=== PATIENT | male | born 1960 | race Caucasian/White ===

== ENCOUNTER 2017-04-05 11:16 | Outpatient (CLI) | payer BC ==
[~2017-04-05 11:16] MED LIST: ACET-2319 PO; ASPI-974 PO; CHOL10002 PO; LISI-600 PO
[2017-04-05 11:17] VITALS: BP 133/92
[2017-04-10] MEDS ORDERED: FEXO180T94 PO (15:05)
== END 2017-04-05 12:10 | disposition home or self-care (01) ==
LOC: ORTHO 11:16
PROVIDERS: ATTEND Nurse Practitioner Family
DX: S82.891D Other fracture of right lower leg, subsequent encounter for closed fracture with routine healing (principal); I10 Essential (primary) hypertension; Z79.82 Long term (current) use of aspirin; Z79.899 Other long term (current) drug therapy; X58.XXXD Exposure to other specified factors, subsequent encounter
CPT/HCPCS: 73600

== ENCOUNTER 2017-04-11 12:19 | Day surgery (SDC) | payer BC ==
[2017-04-10 15:05] LABS: BASOPHILS % (AUTO) 0.3 % (0-1); EOSINOPHILS # (AUTO) 0.2 X10'3 (0-0.9); LYMPHOCYTES # (AUTO) 1.6 X10'3 (1.1-4.8); LYMPHOCYTES % (AUTO) 20.5 % (21-51); MEAN CORPUSCULAR HEMOGLOBIN 29.2 PG (27.0-31.0); MEAN CORPUSCULAR HGB CONC 34.8 % (33.0-36.5); MEAN CORPUSCULAR VOLUME 83.8 FL (78-98); MEAN PLATELET VOLUME 6.2 FL (7.4-10.4); MONOCYTES # (AUTO) 0.5 X10'3 (0-0.9); MONOCYTES % (AUTO) 6.8 % (2-12); NEUTROPHILS # (AUTO) 5.5 X10'3 (1.8-7.7); NEUTROPHILS % (AUTO) 69.4 % (42-75); PRE OP HEMATOCRIT 47.1 % (42.0-52.0); PRE OP HEMOGLOBIN 16.4 g/dL (14.0-17.9); PRE OP PLATELET COUNT 288 X10'3 (140-440); RED BLOOD COUNT 5.63 X10'6 (4.70-6.10); RED CELL DISTRIBUTION WIDTH 13.6 % (11.5-14.5)
[2017-04-10 15:22] LABS: ALBUMIN 4.1 G/DL (3.4-5.0); ALBUMIN/GLOBULIN RATIO 1.1 (1.1-1.5); ALKALINE PHOSPHATASE 81 IU/L (46-116); BLOOD UREA NITROGEN 20 MG/DL (7-18); CALCIUM 9.7 MG/DL (8.5-10.1); CHLORIDE 103 MMOL/L (99-107); CREATININE 1.11 MG/DL (0.60-1.10); PRE OP ALT 65 U/L (30-65); PRE OP ANION GAP 8 (8-16); PRE OP AST 31 U/L (10-37); PRE OP BILIRUB, TOTAL 0.4 MG/DL (0.0-1.0); PRE OP GLUCOSE 98 MG/DL (70-104); PRE OP SODIUM 140 MMOL/L (135-145); TOTAL PROTEIN 7.7 G/DL (6.4-8.2); eGFR 68 ML/MIN
[~2017-04-11] VITALS: Ht 162.6 cm; Wt 80.0 kg
[2017-04-11] VITALS (7 sets, daily range): BP systolic 120–143; BP diastolic 75–98
[~2017-04-11 12:19] MED LIST changes: -ACET-2319 PO; +FEXO180T94 PO; +ceFAZolin inj. 2,000 MG in dextrose 5%-water 100 ML IV ONE; +ceFAZolin inj. 2,000 MG in dextrose 5%-water 50 ML IV ONE; +famotidine 20mg tablet PO ONE; +ringers solution, lacted 1,000 ML IV SCH; +vancomycin inj 1,500 MG in normal saline 300ml IV soln IV ONE
[2017-04-11] MEDS ORDERED: LIDOcaine 1% (10mg/ml) 2ml vial ONE (14:14)
[2017-04-11] MEDS ORDERED: ceFAZolin 1000mg inj ONE (14:49)
[2017-04-11] MEDS ORDERED: bacitracin 15gm ointment TP ONE (14:49)
[2017-04-11] MEDS ORDERED: BUPIVAcaine/PF 2.5 mg/ml (0.25%) 30ml vial ONE (14:50)
[2017-04-11] MEDS ORDERED: desflurane 240ml liquid inh. IH ONE (16:18)
[2017-04-11] MEDS ORDERED: fentaNYL/PF 50MCG/1 ML 2ML syringe ONE (16:27)
[2017-04-11] MEDS ORDERED: midazolam 2 mg/2 ml injection ONE (16:28)
[2017-04-11] MEDS ORDERED: propofol inj 20 ML IV ONE (16:51)
[2017-04-11] MEDS ORDERED: LIDOcaine 2% (20mg/ml) 5ml vial ONE (16:51)
[2017-04-11] MEDS ORDERED: ringers solution, lacted 1,000 ML IV SCH (17:19)
[2017-04-11] MEDS ORDERED: ondansetron/PF 4mg/2ml inj IV PRN (17:20)
[2017-04-11] MEDS ORDERED: meperidine/PF 25mg/ml syringe IV ONE (17:20)
[2017-04-11] MEDS ORDERED: ketorolac trometh. 30mg/ml inj. IV ONE (17:20)
[2017-04-11] MEDS ORDERED: acetaminophen 1,000mg/100ml IV 100 ML IV PRN (17:20)
[2017-04-11] MEDS ORDERED: proCHLORperazine 10 MG/2 ml inj IV PRN (17:20)
[2017-04-11] MEDS ORDERED: meperidine/PF 25mg/ml syringe IV PRN ×2 (17:20)
[2017-04-11] MEDS ORDERED: ondansetron/PF 4mg/2ml inj ONE (17:37)
[2017-04-11] MEDS ORDERED: dexamethasone sod phosphate 4mg/ml inj. ONE (17:37)
[2017-04-11] MEDS ORDERED: HYDROcodone/acetaminophen 10/325mg tab PO ONE (19:00)
== END 2017-04-11 18:40 | disposition home or self-care (01) ==
LOC: PRE-OP 12:19 → PAS 18:40
PROVIDERS: ATTEND Orthopaedic Surgery
DX: T84.84XA Pain due to internal orthopedic prosthetic devices, implants and grafts, initial encounter (principal); G89.18 Other acute postprocedural pain; I10 Essential (primary) hypertension; Z79.82 Long term (current) use of aspirin; Z79.2 Long term (current) use of antibiotics; Z98.890 Other specified postprocedural states; Y83.1 Surgical operation with implant of artificial internal device as the cause of abnormal reaction of the patient, or of later complication, without mention of misadventure at the time of the procedure
CPT/HCPCS: 20680; 36415; 80053; 85025; 93005; A6449; J0690; J1100; J1885; J2001; J2175; J2250; J2270; J2405; J2704; J3010; J3370; J3490; J7060; J7120; A7000

== ENCOUNTER 2017-04-20 08:53 | Outpatient (CLI) | payer BC ==
[~2017-04-20 08:53] MED LIST changes: -ceFAZolin inj. 2,000 MG in dextrose 5%-water 100 ML IV ONE; -ceFAZolin inj. 2,000 MG in dextrose 5%-water 50 ML IV ONE; -famotidine 20mg tablet PO ONE; -ringers solution, lacted 1,000 ML IV SCH; -vancomycin inj 1,500 MG in normal saline 300ml IV soln IV ONE
[2017-04-20 09:01] VITALS: BP 122/80
== END 2017-04-20 09:30 | disposition home or self-care (01) ==
LOC: ORTHO 08:53
PROVIDERS: ATTEND Nurse Practitioner Family
DX: S82.891D Other fracture of right lower leg, subsequent encounter for closed fracture with routine healing (principal); I10 Essential (primary) hypertension; X58.XXXD Exposure to other specified factors, subsequent encounter
CPT/HCPCS: A6449